=== PATIENT | male | born 1960 | race Caucasian/White ===

== ENCOUNTER 2022-04-09 13:02 | Emergency (ER) | payer SELFPAY ==
[2022-04-09 13:17] VITALS: BP 127/81; PULSE 69; RESP 18; TEMP 36.7; O2SAT 98
--- NOTE | 2022-04-09 14:00 | ED.GENADULT ---
HPI - General Adult General Chief complaint: Unspecified Stated complaint: Elevated Blood Pressure Time Seen by Provider: 04/09/22 13:45 Source: patient and family (Significant other) Mode of arrival: ambulatory Limitations: no limitations History of Present Illness HPI narrative: Patient presents today complaining of elevated blood pressure readings recently. This morning his reading was 145/96 at home. Last week his systolic was in the 160s when checked at [facility]. States he drinks some tea this morning that has been known to lower blood pressure, and upon arrival at Urgent Care is blood pressure was 127/81. His reason for coming to urgent care today was to have an elevated blood pressure on record to start establishing them. He has not seen a PCP in 5 years. He called today to schedule an appointment, but can not get in until July 13. He denies headache, chest pain, dizziness, vision changes, numbness or tingling, weakness, or any additional symptoms. Related Data Home Medications Medication Instructions Recorded Confirmed No Home Medications 04/09/22 04/09/22 Allergies Allergy/AdvReac Type Severity Reaction Status Date / Time No Known Allergies Allergy Verified 04/09/22 14:02 Review of Systems Review of Systems: CONSTITUTIONAL: Denies body aches, fever, chills, or sweats. EYES: Denies visual changes, redness, or discharge. ENT: Denies rhinorrhea, congestion, sore throat, or otalgia. CARDIOVASCULAR: Denies chest pain, palpitations, or edema. RESPIRATORY: Denies cough or dyspnea. GASTROINTESTINAL: Denies abdominal pain, nausea, vomiting, or diarrhea. GENITOURINARY: Denies dysuria or hematuria. SKIN: Denies rash, itching, or wounds. MUSCULOSKELETAL: Denies back pain, joint pain, or myalgia. NEUROLOGIC: Denies headache, numbness, tingling, or weakness. PSYCH: Denies depression or anxiety. [facility] Surgical History Surgical History History of cholecystectomy Family History Family History Mother Patient's mother is in good health Father Patient's father is in good health Other Family history of arthritis Family history of malignant neoplasm Social History Social History Smoking status: Current every day smoker Alcohol intake: current Comments At time of signature, I have reviewed and agree with nursing past medical, surgical, social and family history unless otherwise noted. Please see nursing chart for further information. There is no relevant family history pertinent to the presenting complaint Exam Narrative: GENERAL: Well-appearing, well-nourished, and in no acute distress. HEAD: Normocephalic, atraumatic. EYES: EOMI. No redness or drainage. Conjunctivae normal. ENT: Mucous membranes pink and moist. NECK: Normal AROM. CHEST: No respiratory distress. EXTREMITIES: Normal range of motion. No edema. SKIN: Warm, dry, no rash. Capillary refill normal. Normal skin turgor. NEURO: No focal deficits. Alert and oriented x3. Gait steady. PSYCH: Normal affect. No signs of depression or anxiety. Course Course Level of Care: Express Care Visit Vital Signs Vital signs: Vital Signs Temperature 98.0 F 04/09/22 13:17 Pulse Rate 69 04/09/22 13:17 Respiratory Rate 18 04/09/22 13:17 Blood Pressure 127/81 04/09/22 13:17 Pulse Oximetry 98 04/09/22 13:17 Oxygen Delivery Room Air 04/09/22 13:17 Temperature 98.0 F 04/09/22 13:17 Pulse Rate 69 04/09/22 13:17 Respiratory Rate 18 04/09/22 13:17 Blood Pressure 127/81 04/09/22 13:17 Pulse Oximetry 98 04/09/22 13:17 Oxygen Delivery Room Air 04/09/22 13:17 Reviewed Medical Decision Making [facility] Narrative Medical decision making narrative: Patient's blood pressure is slightly elevated today. He has a follow-up appoint wi
== END 2022-04-09 14:10 | disposition home or self-care (01) ==
PROVIDERS: Emergency Provider Nurse Practitioner
DX: R03.0 Elevated blood-pressure reading, without diagnosis of hypertension (principal); F17.200 Nicotine dependence, unspecified, uncomplicated
CPT/HCPCS: 99211; G0463

== ENCOUNTER 2022-04-13 09:59 | Emergency (ER) | payer SELFPAY ==
[2022-04-13 10:16] VITALS: BP 173/105; PULSE 60; RESP 18; TEMP 36.7; O2SAT 99
[2022-04-13 10:42] VITALS: BP 162/96
--- NOTE | 2022-04-13 11:01 | ED.GENADULT ---
HPI - General Adult General Chief complaint: Recheck/Abnormal Lab/Rx Stated complaint: elevated blood pressure Time Seen by Provider: 04/13/22 10:50 Source: patient and family () Mode of arrival: ambulatory Limitations: no limitations History of Present Illness HPI narrative: Patient and present today complaining of an elevated blood pressure reading this morning. Patient's blood pressure upon waking this morning was 167/102. He complained of a slight headache earlier today, but this has since resolved. He denies any additional symptoms to include chest pain, numbness or tingling, weakness, vision changes. His blood pressure upon arrival at urgent care was 173/105, and a recheck was 162/96. Patient was seen at [facility] on 04/09/2022 for same complaint. He is waiting to see his primary in July after not seeing anyone for 5 years. He was reassured and counseled to check his blood pressure daily and given when to go to the ER warnings. Related Data Home Medications Medication Instructions Recorded Confirmed No Home Medications 04/09/22 04/13/22 Allergies Allergy/AdvReac Type Severity Reaction Status Date / Time No Known Allergies Allergy Verified 04/13/22 10:09 Review of Systems Review of Systems: CONSTITUTIONAL: Denies body aches, fever, chills, or sweats. EYES: Denies visual changes, redness, or discharge. ENT: Denies rhinorrhea, congestion, sore throat, or otalgia. CARDIOVASCULAR: Denies chest pain, palpitations, or edema. RESPIRATORY: Denies cough or dyspnea. GASTROINTESTINAL: Denies abdominal pain, nausea, vomiting, or diarrhea. GENITOURINARY: Denies dysuria or hematuria. SKIN: Denies rash, itching, or wounds. MUSCULOSKELETAL: Denies back pain, joint pain, or myalgia. NEUROLOGIC: Denies numbness, tingling, or weakness.+ headache-resolved PSYCH: Denies depression or anxiety. [facility] Past Medical History Medical History (Updated 04/13/22 @ 11:07 by Dasha Mishra, ANGEL, MARNIE) Hypertension Surgical History Surgical History History of cholecystectomy Family History Family History Mother Patient's mother is in good health Father Patient's father is in good health Other Family history of arthritis Family history of malignant neoplasm Social History Social History Smoking status: Current every day smoker Alcohol intake: current Comments At time of signature, I have reviewed and agree with nursing past medical, surgical, social and family history unless otherwise noted. Please see nursing chart for further information. There is no relevant family history pertinent to the presenting complaint Exam Narrative: GENERAL: Well-appearing, well-nourished, and in no acute distress. HEAD: Normocephalic, atraumatic. EYES: EOMI. PERRL. No redness or drainage. Conjunctivae normal. ENT: Mucous membranes pink and moist. NECK: Normal AROM. CHEST: No respiratory distress. Clear to auscultation. HEART: Regular rate and rhythm. No murmur appreciated. Normal peripheral pulses. EXTREMITIES: Normal range of motion. No edema. SKIN: Warm, dry, no rash. Capillary refill normal. Normal skin turgor. NEURO: No focal deficits. Alert and oriented x3. Gait steady. PSYCH: Normal affect. No signs of depression or anxiety. Course Course Level of Care: Express Care Visit Vital Signs Vital signs: Vital Signs Temperature 98.0 F 04/13/22 10:16 Pulse Rate 60 04/13/22 10:16 Respiratory Rate 18 04/13/22 10:16 Blood Pressure 173/105 H 04/13/22 10:16 Pulse Oximetry 99 04/13/22 10:16 Oxygen Delivery Room Air 04/13/22 10:16 Temperature 98.0 F 04/13/22 10:16 Pulse Rate 60 04/13/22 10:16 Respiratory Rate 18 04/13/22 10:16 Blood Pressure 162/96 H 04/13/22 10:42 Pulse Oximetry 99 04/13/22
== END 2022-04-13 11:10 | disposition home or self-care (01) ==
PROVIDERS: Emergency Provider Nurse Practitioner; PCP Family Medicine
DX: I10 Essential (primary) hypertension (principal); F17.200 Nicotine dependence, unspecified, uncomplicated
CPT/HCPCS: 99211; G0463